=== PATIENT | male | born 2000 | race Asian ===

== ENCOUNTER 2023-05-06 20:28 | Emergency (ER) | payer OTHER ==
[2023-05-06] MEDS ORDERED: HYDROcod/ACETAM 5/325 MG TABLET PO STA (21:59)
[2023-05-06] MEDS ORDERED: CYCLOBENZAPRINE 10 MG TABLET PO STA (21:59)
[2023-05-06] MEDS ORDERED: predniSONE 20 MG TABLET PO STA (21:59)
--- NOTE | 2023-05-06 22:20 | ED Physician Documentation ---
PD HPI BACK PAIN - Stated complaint Stated Complaint: BACK PX - Chief complaint Chief Complaint: Back Pain - History obtained from History obtained from: Patient - History of Present Illness Timing - onset: Today Timing - duration: Days (1) Timing - details: Gradual onset Pain level max: 5 Pain level now: 5 Location: Lower, Right, Left Quality: Pain, Spasm, Similar to prior episodes Associated symptoms: No: Fever, Weakness, Numbness, Incontinent of urine, Unable to urinate, Hematuria, Incontinent of stool Improves with: Rest Worsened by: Movement Contributing factors: No: Twisting, Trauma, Anticoagulated, Cancer, IVDA, Out of meds - Additional information Additional information: 23-year-old male presents to the emergency department low back pain after lifting heavy objects at work. No loss of bowel or bladder control. No numbness or tingling. No IV drug use. Review of Systems Constitutional: denies: Fever, Chills GI: denies: Nausea, Vomiting, Diarrhea : denies: Unable to Void, Incontinent Skin: denies: Rash Musculoskeletal: denies: Neck pain Neurologic: denies: Focal weakness, Numbness PD PAST MEDICAL HISTORY - Past Medical History Past Medical History: No Cardiovascular: None Respiratory: None Neuro: None Endocrine/Autoimmune: None GI: None : None HEENT: None Psych: None Musculoskeletal: None Derm: None - Past Surgical History Past Surgical History: No - Present Medications Home Medications: Ambulatory Orders Medication Instructions Recorded Confirmed Cyclobenzaprine [Flexeril] 10 mg PO TID PRN #20 tablet 05/06/23 HYDROcod/ACETAM 5/325 [[place] 5/325] 1 - 2 ea PO Q6H PRN #14 tablet 05/06/23 Ibuprofen [Motrin] 800 mg PO Q8H PRN #30 tablet 05/06/23 - Allergies Allergies/Adverse Reactions: Allergies Allergy/AdvReac Type Severity Reaction Status Date / Time No Known Drug Allergies Allergy Verified 05/06/23 20:35 - Social History Does the pt smoke?: No Smoking Status: Never smoker Does the pt have substance abuse?: No - Immunizations Immunizations are current?: Yes PD ED PE NORMAL - Vitals Vital signs reviewed: Yes - General General: Alert and oriented X 3, No acute distress - HEENT HEENT: PERRL, Moist mucous membranes - Neck Neck: Supple, no meningeal sign - Cardiac Cardiac: RRR, Strong equal pulses - Respiratory Respiratory: No respiratory distress, Clear bilaterally - Abdomen Abdomen: Soft, Non tender, Non distended - Back Back: No spinal TTP (No midline tenderness to palpation or percussion. No step- off or deformity. Mild paraspinal spasm bilateral lower lumbar.) - Derm Derm: Warm and dry - Extremities Extremities: No edema, No calf tenderness / cord, Other (Normal bilateral lower extremity patellar and ankle jerk reflexes. Normal great toe extension bilaterally. 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, No motor deficit, No sensory deficit, Normal speech - Psych Psych: Normal mood, Normal affect Results - Vitals Vitals: Vital Signs - 24 hr 05/06/23 05/06/23 20:35 22:31 Temperature 36.3 C L Heart Rate 82 68 Respiratory 16 18 Rate Blood Pressure 127/74 136/95 H O2 Saturation 97 98 Oxygen O2 Source Room air PD Medical Decision Making - ED course Complexity details: reviewed results, re-evaluated patient, considered differential (no cauda equina, no spinal epidural abscess, no fracture, no aortic dissection or evidence of aneursym rupture), d/w patient ED course: Patient is a 23-year-old male with back pain, consistent with back spasm. No evidence of cauda equina, epidural abscess. No indication for emergent imaging. No focal neurological deficits. We will treat as back spasm and have him follow-up with his PCP for further care. Ambulating without difficulty. Patient counseled regarding signs and symptoms for which I believe and urgent re-evaluation would be necessary. Patient with good understanding of and agreement to plan and is comfortable going home at this time This document was made in part using voice recognition software. While efforts are made to proofread this document, sound alike and grammatical errors may occur. Departure - Departure Disposition: 01 Home, Self Care Clinical Impression: Back spasm Condition: Good Instructions: ED Low Back Pain Injury, ED Spasm Back No Trauma Follow-Up: MELLY Recinos [Provider Group] - Within 3 Days Prescriptions: Cyclobenzaprine [Flexeril] 10 mg PO TID PRN #20 tablet PRN Reason: Spasms Ibuprofen [Motrin] 800 mg PO Q8H PRN #30 tablet PRN Reason: PAIN &/OR FEVER HYDROcod/ACETAM 5/325 [[place] 5/325] 1 - 2 ea PO Q6H PRN #14 tablet PRN Reason: Pain Comments: Your prescriptions were sent to the [facility] pharmacy. Please follow-up with your doctor for further care. This can take several days to up to 2 weeks to fully improve. You may have benefit from physical therapy as well. Your doctor can order this for you. I am prescribing a short course of narcotic pain medication for you. These are potentially dangerous and addictive medications that should be used carefully. These medications may constipate you. Take an nqyc-wuy-qyhclli stool softener (docusate) twice daily with plenty of water while taking these medications. If you go 24 hours without a bowel movement, take kxjd-xmr-eaeweko miralax, per package instructions. Do not drink or drive while taking these medications. If you received narcotic or sedating medications while in the emergency department, do not drive for 24 hours. Store this medication in a safe, secure place and out of reach of children. It is a violation of federal law to give or sell this medication to another person or to use in a manner other than prescribed. The ED will not refill narcotic prescriptions, including prescriptions lost or stolen. To dispose of unwanted medications: 1. [facility] at [address] in [place] has a medication drop box. They accept prescription medications (in pill form) Friday through Friday 9:00 a.m. to 5:00 p.m. 2. The [facility] [place] [employer] accepts prescription medications (in pill form only) for disposal year round. Call for more information. 3. Contact the [facility] for the next [facility] sponsored prescription drug collection event. , [phone], or [phone]; Forms: Activity restrictions Discharge Date/Time: 05/06/23 22:31
[2023-05-06 22:38] VITALS: BP 136/95; O2SAT 98
== END 2023-05-06 22:31 | disposition home or self-care (01) ==
LOC: EDUNIT# → ED 20:28
DX: M62.830 Muscle spasm of back (principal)
CPT/HCPCS: 99283; A9270; J7512

== ENCOUNTER 2024-02-15 21:04 | Emergency (ER) | payer OTHER ==
[2024-02-15 21:44] VITALS: O2SAT 100
--- NOTE | 2024-02-16 | ED Physician Documentation ---
History of Present Illness - Stated complaint Stated Complaint: BACK PX - Chief complaint Chief Complaint: Back Pain - History obtained from History obtained from: Patient - Additonal information Additional information: The patient comes to the emergency department chief complaint of low back pain. It has been recurrent since last April. 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 Patient states the numbness only last for a couple minutes then goes away, and sometimes feels more like a tingling, but he is just concerned about it. He states that in April, he was told to come back for an MRI if the symptoms recurred, but he never did come back to the ED. He states it happened a couple more times and he saw his primary doctor at the [employer] base, And was sent to physical therapy. He states it helped a little but that he has had a couple more episodes since then. It is always associated with bending over or lifting and that He has to walk stiffly because it hurts his back to walk the normal way. He denies any weakness. No ongoing numbness or tingling. No pain shooting down his legs. PD PAST MEDICAL HISTORY - Past Medical History Past Medical History: Yes Cardiovascular: None Respiratory: None Neuro: None Endocrine/Autoimmune: None GI: None : None HEENT: None Psych: None Musculoskeletal: Other Derm: None Other Past Medical History: Back injury 2022 - Past Surgical History Past Surgical History: No - Present Medications Home Medications: Ambulatory Orders Medication Instructions Recorded Confirmed Cyclobenzaprine [Flexeril] 10 mg PO TID PRN #20 tablet 02/16/24 HYDROcod/ACETAM 5/325 [[place] 5/325] 1 - 2 tablet PO Q6H PRN #14 tablet 02/16/24 Ibuprofen [Motrin] 800 mg PO Q8H PRN #30 tablet 02/16/24 - Allergies Allergies/Adverse Reactions: Allergies Allergy/AdvReac Type Severity Reaction Status Date / Time No Known Drug Allergies Allergy Verified 02/15/24 21:36 - Social History Does the pt smoke?: No Smoking Status: Never smoker Does the pt have substance abuse?: No - Immunizations Immunizations are current?: Yes - POLST Patient has POLST: No PD ED PE NORMAL - Vitals Vital signs reviewed: Yes - General General: Alert and oriented X 3, No acute distress - HEENT HEENT: Atraumatic, PERRL, EOMI, Moist mucous membranes - Neck Neck: Supple, no meningeal sign - Cardiac Cardiac: Strong equal pulses - Respiratory Respiratory: No respiratory distress, Clear bilaterally - Abdomen Abdomen: Soft, Non tender, Non distended - Back Back: No spinal TTP, Other (Tenderness to palpation on either side of lumbar spine, extending into bilateral sciatic joints. No spinal step-off.) - Derm Derm: Normal color, Warm and dry, No rash - Extremities Extremities: No deformity, No edema - Neuro Neuro: Alert and oriented X 3, No motor deficit, No sensory deficit - Psych Psych: Normal mood, Normal affect Results - Vitals Vitals: Vital Signs - 24 hr 02/15/24 02/16/24 21:33 00:54 Temperature 36.3 C L 36.7 C Heart Rate 109 H 68 Respiratory 16 16 Rate Blood Pressure 127/70 103/72 O2 Saturation 100 100 Oxygen O2 Source Room air - Rads (name of study) Lumbar spine x-ray series Relevant Findings:: Final report received, See rad report (Negative) PD Medical Decision Making - ED course Complexity details: reviewed results, re-evaluated patient, considered differential, d/w patient ED course: The patient was treated symptomatically with Decadron and Toradol and requested no opiates because of his work. He was sent for an x-ray series of the lumbar spine which was negative. I discussed with the patient that MRI would probably be the best test to get but that that is not indicated emergently and he will need to discuss this with his primary care physician. I have sent prescriptions for him to the pharmacy of his choice for the meantime. Patient does not display any evidence of an emergent cause or complication of his back pain. Departure - Departure Disposition: 01 Home, Self Care Clinical Impression: Acute lumbar myofascial strain Qualifiers: Encounter type: initial encounter Qualified Code(s): S39.012A - Strain of muscle, fascia and tendon of lower back, initial encounter Condition: Stable Instructions: ED Sprain Strain Lumbar Prescriptions: Cyclobenzaprine [Flexeril] 10 mg PO TID PRN #20 tablet PRN Reason: Spasms Ibuprofen [Motrin] 800 mg PO Q8H PRN #30 tablet PRN Reason: PAIN &/OR FEVER HYDROcod/ACETAM 5/325 [[place] 5/325] 1 - 2 tablet PO Q6H PRN #14 tablet PRN Reason: Pain Comments: Your x-ray series looks great. You most likely have some sort of chronic issue with your soft tissues that is repeatedly exacerbated by the job that you do. You may have a disc that has shifted or you may have a chronic ligament, tendon, or muscle tear that is flaring up with repeated stress. It is important that you talk to your primary doctor about possibly having an MRI done to get a better idea what is going on. You may need to also talk to your superiors about being moved to an area where you do not have such a physical job. You have been treated with medication to help with your discomfort tonight. Prescriptions for the same is been electronically transmitted to the [facility] pharmacy in [place]. Please do take note there is a narcotic pain medication that is included in your prescriptions. Please make the next available appointment with your primary to follow-up on this issue. Discharge Date/Time: 02/16/24 00:55
[2024-02-16] MEDS: DEXAMETHASONE 10 MG/ML VIAL IM STA (00:23)
[2024-02-16] MEDS: KETOROLAC 60 MG/2 ML VIAL IM STA (00:26)
--- NOTE | 2024-02-16 00:37 | XRAY Report ---
PROCEDURE: Lumbar Spine 2-3V INDICATIONS: injury/pain TECHNIQUE: 3 views of the lumbar spine were acquired. COMPARISON: None. FINDINGS: Surgical change: None. Bones: 5 put-kro-fmdowew vertebrae are present. There is normal bony alignment. No vertebral body co mpression fractures. No suspicious bony lesions. Soft tissues: Overlying bowel gas pattern is normal. No suspicious soft tissue calcifications. IMPRESSION: Lumbar spine without acute osseous abnormalities or malalignment. No significant degenerative changes . Reviewed by: Poncho Galeano MD on 02/16/2024 12:36 AM PDT Approved by: Poncho Galeano MD on 02/16/2024 12:36 AM PDT Station ID: [id number]
[2024-02-16 01:45] VITALS: BP 103/72
== END 2024-02-16 00:55 | disposition home or self-care (01) ==
LOC: ED 21:04
DX: S39.012A Strain of muscle, fascia and tendon of lower back, initial encounter (principal); X50.0XXA Overexertion from strenuous movement or load, initial encounter; Y99.0 Civilian activity done for income or pay
CPT/HCPCS: 96372; 99283

== ENCOUNTER 2024-03-04 14:17 | Outpatient (CLI) | payer OTHER ==
--- NOTE | 2024-03-05 20:18 | MRI Report ---
PROCEDURE: Lumbar Spine WO INDICATIONS: LOW BACK PAIN TECHNIQUE: Noncontrast sagittal T1 spin echo and T2 fast echo, sagittal STIR, axial T1 and T2 fast spin echo thr ough the lumbar spine. In cases with scoliosis, additional coronal T2 fast spin echo may be performe d. COMPARISON: Correlation is made with lumbar plain films, 02/15/2024 FINDINGS: Image quality: Excellent. Alignment and Curvature: There is normal bony alignment. Bone Marrow: Marrow is of normal overall signal. No acute vertebral body compression fractures. Spinal Cord: Conus medullaris terminates at the L1 level. Visualized cord demonstrates normal signa l and size. Paraspinous Soft Tissues: No paravertebral masses. T12-L1: Normal in appearance. L1-L2: Normal in appearance. L2-L3: Normal in appearance. L3-L4: Normal in appearance. L4-L5: The disc height and disc signal are well preserved. Mild disc bulge is seen. Mild facet h ypertrophy is seen. Mild to moderate bilateral neuroforaminal narrowing can be seen. Minimal central canal narrowing is seen. L5-S1: No significant abnormality is seen. IMPRESSION: Focal L4-L5 degenerative change is seen. Reviewed by: El Meza MD on 03/05/2024 7:16 PM SHARON Approved by: El Meza MD on 03/05/2024 7:16 PM SHARON Station ID: [id number]
== END 2024-03-04 14:18 | disposition home or self-care (01) ==
LOC: DI 14:17
PROVIDERS: ATTEND Physician Assistant
DX: M51.36 Other intervertebral disc degeneration, lumbar region (principal); M48.061 Spinal stenosis, lumbar region without neurogenic claudication; M47.816 Spondylosis without myelopathy or radiculopathy, lumbar region